=== PATIENT | female | born 1965 | race Caucasian/White ===

== ENCOUNTER 2017-07-14 16:30 | Outpatient (CLI) | payer OTHER | END 2017-07-14 16:31 | disposition home or self-care (01) | LOC: BICMAMMO 16:30 | PROVIDERS: ATTEND Internal Medicine | DX: Z12.31 Encounter for screening mammogram for malignant neoplasm of breast (principal) | CPT/HCPCS: 77063; 77067 ==

== ENCOUNTER 2023-11-25 12:49 | Day surgery (SDC) | payer BC ==
[2023-11-25] MEDS ORDERED: Lidocaine 1% PF 5 ML VIAL ONE (13:00)
== END 2023-11-25 14:10 | disposition home or self-care (01) ==
LOC: ULT 12:49
PROVIDERS: ATTEND Otolaryngology Plastic Surgery within the Head & Neck
PROC: 0G9K3ZX Drainage of Thyroid Gland, Percutaneous Approach, Diagnostic (ICD-10-PCS; principal; 2023-11-25)
DX: D34 Benign neoplasm of thyroid gland (principal); E04.1 Nontoxic single thyroid nodule; J30.9 Allergic rhinitis, unspecified; J01.90 Acute sinusitis, unspecified; J34.2 Deviated nasal septum; J34.3 Hypertrophy of nasal turbinates; Z88.0 Allergy status to penicillin; Z88.2 Allergy status to sulfonamides; Z88.1 Allergy status to other antibiotic agents; Z79.899 Other long term (current) drug therapy
CPT/HCPCS: 10005; 10006; 88173; 88305